=== PATIENT | male | born 1945 | race Two or more races ===

== ENCOUNTER 2025-01-25 09:36 | Emergency (ER) | payer OTHER ==
[~2025-01-25] VITALS: Ht 188 cm; Wt 111.0 kg
[~2025-01-25 09:36] MED LIST: APIX2.5T PO; ASCO500T11 PO; ATOR80TA PO; CALCTAB62 OR; CARV3.1240 PO; CHOL1TAB28 PO; FER325T PO; HYDR12.59 PO; LISI20TA56 PO; METF-489 PO; MULT-688 PO; NAP500T PO; OMEG-28 PO; PHEN1CAP38 PO; TERA2CAP79 PO
--- NOTE | 2025-01-25 10:38 | ED.PDOC ---
HPI (NEURO) HPI Comments This is a 79 year old male presenting to the ED with chief complaint of leg weakness. Patient states that he typically ambulates with a walker, was able to drive here. Was waiting for his to be checked in to the hospital when he started feeling global weakness, however, more so along his bilateral legs. Was trying to get up from a seated position when he felt as if his legs were giving out. However, no numbness of the legs. No bowel or bladder incontinence. Patient denies any numbness, tingling, chest pain, SOB, fever, or chills. Chief Complaint: General Weakness Time Seen by MD: 10:36 Reviewed Notes: Nurses Notes, Medications, Allergies Information Source: Patient Mode of Arrival: Wheelchair Severity: Moderate Timing: Hours Duration: Since onset Prehospital treatment: None Weakness Location: (R) Leg, (L) Leg Onset: At rest Circumstances: Spontaneous Symptoms: Weakness Past Medical History PAST MEDICAL HISTORY: DM Surgical History: Denies all surgeries Family History Family History: Reviewed,noncontributory to illness Social History Smoker: Non-Smoker Alcohol: Denies ETOH Use Drugs: Denies Drug Use Lives In: Home Constitutional: reports: weakness; denies: chills, diaphoresis, fatigue, fever, malaise, sweats, others EENTM: denies: blurred vision, double vision, ear bleeding, ear discharge, ear drainage, ear pain, ear ringing, eye pain, eye redness, hearing loss, mouth pain, mouth swelling, nasal discharge, nose bleeding, nose congestion, nose pain, photophobia, tearing, throat pain, throat swelling, voice changes, others Respiratory: denies: cough, hemoptysis, orthopnea, SOB at rest, shortness of breath, SOB with excertion, stridor, wheezing, others Cardiovascular: denies: chest pain, dizzy spells, diaphoresis, Dyspnea on exertion, edema, irregular heart beat, left arm pain, lightheadedness, palpitations, PND, syncope, others Gastrointestinal: denies: abdomen distended, abdominal pain, blood streaked bowels, constipated, diarrhea, dysphagia, difficulty swallowing, hematemesis, melena, nausea, poor appetite, poor fluid intake, rectal bleeding, rectal pain, vomiting, others Genitourinary: denies: burning, dysuria, flank pain, frequency, hematuria, incontinence, penile discharge, penile sore, pain, testicle pain, testicle swelling, urgency, others Neurological: reports: others (Bilateral leg weakness); denies: dizziness, fainting, headache, left sided numbness, left sided weakness, numbness, paresthesia, pre-existing deficit, right sided numbness, right sided weakness, seizure, speech problems, tingling, tremors, weakness Musculoskeletal: denies: back pain, gout, joint pain, joint swelling, muscle pain, muscle stiffness, neck pain, others Integumetry: denies: bruises, change in color, change in hair/nails, dryness, laceration, lesions, lumps, rash, wounds, others Allergic/Immunocompromised: denies: Difficulty Healing, Frequent Infections, Hives, Itching, others Hematologic/Lymphatic: denies: anemia, blood clots, easy bleeding, easy bruising, swollen glands, others Endocrine: denies: excessive hunger, excessive sweating, excessive thirst, excessive urination, flushing, intolerance to cold, intolerance to heat, unexplained weight gain, unexplained weight loss, others Psychiatric: denies: anxiety, bipolar disorder, depression, hopeless, panic disorder, schizophrenia, sleepless, suicidal, others All Other Systems: Reviewed and Negative Physical Exam General Appearance: No Apparent Distress, Normal HEENT: Normal ENT Inspection, Pharynx Normal, TMs Normal Neck: Full Range of Motion, Non-Tender, Normal, Normal Inspection Respiratory: Chest Non-Tender, Lungs Clear, No Accessory Muscle Use, No Respiratory Distress, Normal Breath Sounds Cardiovascular: No Edema, No JVD, No Murmur, No Gallop, Normal Peripheral Pulses, Regular Rate/Rhythm Breast Exam: Deferred Gastrointestinal: No Organomegaly, Non Tender, No Pulsatile Mass, Normal Bowel Sounds, Soft Genitalia: Deferred Pelvic: Deferred Rectal: Deferred Extremities: No calf tenderness, Normal capillary refill, Normal inspection, Normal range of motion, Non-tender, No pedal edema Musculoskeletal : Apperance: Normal Neurologic: Alert, fruit or nut picker II-XII nml as Tested, No Motor Deficits, Normal Affect, Normal Mood, No Sensory Deficits Cerebellar Function: Normal Reflexes: Normal Skin: Dry, Normal Color, Warm Lymphatic: No Adenopathy Was a procedure done? Was a procedure done?: No Differential Diagnosis (SZ) Seizure: Hypoglycemia, Hyponatremia CVA: Electrolyte Imbalance General Weakness: Anemia, Electrolyte imbalance X-Ray, Labs, Meds, VS Vital Signs Date Time Temp Pulse Resp B/P (MAP) Pulse Ox O2 Delivery O2 Flow Rate FiO2 01/25/25 11:50 72 18 98 Room Air* 0 21 01/25/25 11:49 97.9 72 18 108/67 (81) 98 97.9 01/25/25 09:37 97.9 80 18 117/75 95 97.9 Lab Test 01/25/25 12:16 01/25/25 11:00 Range/Units Urine Color Yellow Yellow Urine Clarity Clear Clear Urine pH 5.0 5.0-9.0 Urine Specific [place] 1.028 1.001-1.035 Urine Protein Trace H Negative Urine Ketones Negative Negative Urine Blood Negative Negative /uL Urine Nitrite Negative Negative Urine Bilirubin Negative Negative Urine Urobilinogen Normal Negative mg/dL Urine Leukocyte Esterase Negative Negative /uL Urine RBC 1 0 - 3 /hpf Urine Microscopic WBC 1 0-3 /HPF Urine Squamous Epithelial Cells Few <5 /hpf Urine Bacteria Few H None Seen /hpf Urine Glucose Normal Normal mg/dL White Blood Count 5.8 4.4-10.8 10^3/uL Red Blood Count 3.89 L 4.5-5.90 10^6/uL Hemoglobin 12.0 L 13.5-17.5 g/dL Hematocrit 35.2 L 41.0-53.0 % Mean Corpuscular Volume 90.3 80.0-100.0 fL Mean Corpuscular Hemoglobin 30.8 28.0-32.0 pg Mean Corpuscular Hemoglobin Concent 34.1 32.0-36.0 g/dL Red Cell Distribution Width 14.6 H 11.8-14.3 % Platelet Count 277 140-450 10^3/uL Mean Platelet Volume 7.3 6.9-10.8 fL Neutrophils (%) (Auto) 77.5 37.0-80.0 % Lymphocytes (%) (Auto) 9.8 L 10.0-50.0 % Monocytes (%) (Auto) 8.7 0.0-12.0 % Eosinophils (%) (Auto) 3.4 0.0-7.0 % Basophils (%) (Auto) 0.6 0.0-2.0 % Neutrophils # (Auto) 4.5 1.6-8.6 10 ^3/uL Lymphocytes # (Auto) 0.6 0.4-5.4 10 ^3/uL Monocytes # (Auto) 0.5 0-1.3 10 ^3/uL Eosinophils # (Auto) 0.2 0-0.8 10 ^3/uL Basophils # (Auto) 0 0-0.2 10 ^3/uL Nucleated Red Blood Cells 0.1 % Sodium Level 143 136-145 mmol/L Potassium Level 3.7 3.5-5.1 mmol/L Chloride Level 105 98-107 mmol/L Carbon Dioxide Level 29 20-31 mmol/L Anion Gap 9 5-15 Blood Urea Nitrogen 25 H 9-23 mg/dL Creatinine 0.81 0.700-1.30 mg/dL Glomerular Filtration Rate Calc 91 >90 mL/min BUN/Creatinine Ratio 30.9 H 10.0-20.0 Serum Glucose 102 74-106 mg/dL Calcium Level 9.1 8.7-10.4 mg/dL Creatine Kinase 72 46-171 U/L Current Medications Medications (Trade) Dose Ordered Sig/Gus Route Start Time Stop Time Status Last Admin Sodium Chloride 1,000 ml @ 1,000 mls/hr Q1H ONCE IV 01/25/25 10:30 01/25/25 11:29 DC 01/25/25 12:08 [place] [id number] Ph: [phone] DIAGNOSTIC IMAGING Diagnostic Imaging Report : [id number] Signed PATIENT: DIAMOND SHAVER ACCT: [id number] UNIT: [id number] : 1945 LOC: ER ROOM / BED: / AGE / SEX: 79 / M ADM STATUS: REG ER SERVICE [id number] ORDERING PHYSICIAN: DANUTA ISABEL MD PROCEDURE(s): CXR1 - CHEST XRAY 1 VIEW REASON: weakness ORDER NUMBER(s): [id number], ACCESSION NUMBER(s): [id number] CHEST RADIOGRAPH Indication: weakness Technique: Single frontal view of the chest was obtained Comparison: None FINDINGS: Lines and Tubes: None Lungs: No focal consolidation. Pleura: No effusion. No pneumothorax. Cardiomediastinal contours: Unremarkable Bones: No acute osseous abnormality. IMPRESSION: 1. No acute cardiopulmonary disease. ATED BY: DIAMOND LEBLANC Jr., DO DICTATED DATE/TIME: 01/25/251123 SIGNED BY: DIAMOND LEBLANC Jr., SIGNED DATE/TIME: 01/25/251123 CC: Images Reviewed?: Images reviewed and evaluated by me Time of 1ST Reevaluation: 11:35 Reevaluation 1ST: Unchanged Time of 2ND Reevaluation: 14:29 (Patient reports improvement of symptoms. Feels that he has gotten his strength back.) Patient Education/Counseling: Diagnosis, Treatment Family Education/Counseling: No Family Present Departure 1 Departure Time of Disposition: 14:29 (79-year-old male presenting for evaluation of bilateral lower extremity weakness over the past day. Symptoms occurred while he was waiting for his to be checked into the hospital. Although he is reporting weakness he was able to lift both of his air without assistance. Was able to stand up from a seated position as well. No bowel or bladder incontinence, no numbness, not concerning for any acute cord compromise, cauda equina. Given the vague symptoms of weakness basic labs were obtained as well. CBC with no evidence of critical leukocytosis or significant anemia. Metabolic panel with no evidence of acute electrolyte abnormalities or acute kidney insufficiency. CXR with no evidence of acute cardiopulmonary process. Patient is hemodynamically stable here. Was given 1 L of normal saline IV fluid bolus. Feeling improved after interventions. Patient able to ambulate a few steps, does typically use a walker. He is stable for discharge given no other acute process today.) Impression: Primary Impression: Bilateral leg weakness Disposition: 01 HOME / SELF CARE / HOMELESS Condition: Stable Discharged With: Self Critical Care Note Critical Care Time?: No Stability Stability form required: No Heart Score Heart Score: Heart Score Response (Comments) Value History N/A 0 EKG N/A 0 Age N/A 0 Risk Factors N/A 0 Troponin N/A 0 Total 0 I personally scribed for DANUTA ISABEL MD ([email or web address]) on 01/25/25 at 10:38. Electronically submitted by Cody Ballesteros ([email or web address]). I personally scribed for DANUTA ISABEL MD ([email or web address]) on 01/25/25 at 12:29. Electronically submitted by Cody Ballesteros ([email or web address]). DANUTA ISABEL MD Jan 25, 2025 10:38
--- NOTE | 2025-01-25 11:26 | DVH ---
CHEST RADIOGRAPH Indication: weakness Technique: Single frontal view of the chest was obtained Comparison: None FINDINGS: Lines and Tubes: None Lungs: No focal consolidation. Pleura: No effusion. No pneumothorax. Cardiomediastinal contours: Unremarkable Bones: No acute osseous abnormality. IMPRESSION: 1. No acute cardiopulmonary disease.
[2025-01-25 11:29] LABS: Hematocrit 35.2 % (41.0-53.0); Hemoglobin 12.0 g/dL (13.5-17.5); Mean Corpuscular Hemoglobin 30.8 pg (28.0-32.0); Mean Corpuscular Volume 90.3 fL (80.0-100.0); Nucleated Red Blood Cells % 0.1 %
[2025-01-25 11:40] LABS: Chloride 105 mmol/L (98-107); Potassium 3.7 mmol/L (3.5-5.1); Sodium 143 mmol/L (136-145)
[2025-01-25 11:41] LABS: Anion Gap 9 (5-15); Calcium 9.1 mg/dL (8.7-10.4); Carbon Dioxide 29 mmol/L (20-31)
[2025-01-25 11:46] LABS: BUN/Creatinine Ratio 30.9 (10.0-20.0); Glucose 102 mg/dL (74-106)
[2025-01-25 11:48] LABS: Creatine Kinase IFCC 72 U/L (46-171)
[2025-01-25 11:50] VITALS: PULSE 72; RESP 18; O2SAT 98
[2025-01-25 11:54] LABS: Blood Urea Nitrogen 25 mg/dL (9-23)
[2025-01-25] MEDS: SODIUM CHLORIDE 0.9% 1,000 ML IV ONE (12:08)
[2025-01-25 13:47] LABS: Urine Protein, UAD TRACE (Negative)
[2025-01-25 15:30] VITALS: BP 147/76; PULSE 62; RESP 18; TEMP 98.5; O2SAT 98
== END 2025-01-25 15:30 | disposition home or self-care (01) ==
LOC: ER 09:36
DX: M62.81 Muscle weakness (generalized) (principal); E11.9 Type 2 diabetes mellitus without complications; Z79.899 Other long term (current) drug therapy
CPT/HCPCS: 36415; 71045; 80048; 81001; 82550; 85025; 96360; 99284; J7030